=== PATIENT | female | born 1960 | race Two or more races ===

== ENCOUNTER 2024-09-13 14:37 | Outpatient (CLI) | payer MEDICAID, SELFPAY ==
--- NOTE | 2024-09-13 15:00 | CRLHL7_ITS ---
For Patients: As a result of the Cures Act, medical imaging exams and procedure reports are released immediately into your electronic medical record. You may view this report before your referring provider. If you have questions, please contact your health care provider. INDICATION: Postmenopausal bleeding. TECHNIQUE: Ultrasound pelvis transabdominal. COMPARISON: None. FINDINGS: Uterus: 5.1 x 2.6 x 3.0 cm. Normal echotexture of the myometrium. No masses. Endometrium: Transvaginal imaging was performed to better evaluate the endometrium. Endometrial thickness measures 1 mm. No sign of endometrial mass or fluid. Right ovary measures 5.4 x 5.4 x 5.0 cm and left ovary measures 1.6 x 0.8 x 1.5 cm. Simple right ovarian cyst measuring 4.8 x 4.7 x 4.6 centimeters Cul-de-sac: No significant free fluid. IMPRESSION: 1. Endometrium measures 1 millimeter. No focal endometrial lesion is detected. 2. 4.8 centimeter right ovarian simple cyst. O-RADS 2, almost certainly benign. Recommend 1 year follow-up ultrasound per O-RADS guidelines. Dictated by Stephane Michaels MD @ 09/14/2024 11:38:00 AM (Electronically Signed)
== END 2024-09-13 14:38 | disposition home or self-care (01) ==
LOC: US 14:38
PROVIDERS: PCP Registered Nurse; Visit Provider Obstetrics & Gynecology
DX: N95.0 Postmenopausal bleeding (principal); N83.291 Other ovarian cyst, right side
CPT/HCPCS: 76830; 76856